=== PATIENT | male | born 1970 | race Caucasian/White ===

== ENCOUNTER 2024-09-27 22:22 | Emergency (ER) | payer MEDICAID ==
[~2024-09-27] VITALS: Ht 170.2 cm; Wt 59.0 kg
[2024-09-27 22:35] VITALS: O2SAT 100
[2024-09-27] MEDS ORDERED: DOXY100C74 MT (23:44)
[2024-09-27] MEDS ORDERED: AMOX1TAB16 MT (23:44)
[2024-09-27] MEDS ORDERED: ALBU18HF2 IH (23:45)
[2024-09-28 00:30] VITALS: BP 119/85; PULSE 74; RESP 18; TEMP 36.94740; O2SAT 99
== END 2024-09-28 00:40 | disposition home or self-care (01) ==
LOC: ER 22:22
DX: J18.9 Pneumonia, unspecified organism (principal); F17.200 Nicotine dependence, unspecified, uncomplicated; G40.909 Epilepsy, unspecified, not intractable, without status epilepticus
CPT/HCPCS: 71045; 99283